=== PATIENT | female | born 1960 | race Caucasian/White ===

== ENCOUNTER 2017-01-14 12:53 | Inpatient (IN) | payer OTHER ==
[~2017-01-14] VITALS: Ht 160 cm; Wt 74.8 kg
[2017-01-14] MEDS ORDERED: GLIPIZIDE5 MG PO ×2 (13:27→13:32)
[2017-01-14] MEDS ORDERED: QUINAPRIL HCL40 MG PO (13:28)
[2017-01-14] MEDS ORDERED: QUINAPRIL HCL20 MG PO (13:28)
[2017-01-14] MEDS ORDERED: LIPITOR40 MG PO (13:30)
[2017-01-14] MEDS ORDERED: NIFEDICAL XL PO (13:30)
[2017-01-14] MEDS ORDERED: HYDROCHLOROTH12.5 M3 PO (13:30)
[2017-01-14] MEDS ORDERED: GLIPIZIDE10 MG PO (13:31)
[2017-01-14 13:43] LABS: ADD MIUA? YES; BILIRUBIN NEGATIVE; BLOOD MODERATE; GLUCOSE (STRIP) 150; KETONES NEGATIVE; LEUKOCYTES MODERATE; NITRITE NEGATIVE; PROTEIN (STRIP) 100; SPECIFIC GRAVITY 1.015 (1.000-1.030); UROBILINOGEN 0.2 MG/DL (0.2-1.0)
[2017-01-14 13:44] LABS: COLOR YELLOW ((YELLOW))
[2017-01-14 13:46] LABS: HEMATOCRIT 32.6 % (36.0-46.0); MCH 28.5 PG (29.0-34.0); MCHC 33.4 G/DL (30.0-36.0); MCV 85.1 FL (83-99); MEAN PLAT.VOLUME 10.9 uM^3 (9.5-12.4); PLATELET COUNT 229 K/uL (156-360); RBC DIS.WIDTH-CV 13.1 % (11.8-14.6); RBC DIS.WIDTH-SD 40.6 % (39-53); RED BLOOD COUNT 3.83 M/uL (3.80-5.20); WHITE BLOOD COUNT 13.8 K/uL (4.1-10.2)
[2017-01-14 13:56] LABS: UCUL ADDED? YES; WHITE BLOOD CELLS TNTC /HPF (0-5)
[2017-01-14 13:58] LABS: CHLORIDE 88 mEq/L (99-109); POTASSIUM 4.6 mEq/L (3.7-5.4); SODIUM 125 mEq/L (136-147)
[2017-01-14 13:59] LABS: GLUCOSE 376 mg/dL (70-99)
[2017-01-14 14:01] LABS: ANION GAP 21 MEQ/L (2-14)
[2017-01-14 14:03] LABS: GFR ESTIMATE (CALCULATED) 13 mL/min/
[2017-01-14 14:04] LABS: UREA NITROGEN (BUN) 61 mg/dL (9-23)
[2017-01-14] MEDS ORDERED: ACCUPRIL40 MG PO (15:43)
[2017-01-14] MEDS ORDERED: GLUCOTROL10 MG PO (15:44)
[2017-01-14] MEDS ORDERED: VITAMIN D31000 UNIT PO (15:45)
[2017-01-14] MEDS ORDERED: PROCARDIA XL30 MG PO (15:45)
[2017-01-14 20:42] VITALS: BP 126/65
[2017-01-14 21:18] LABS: POINT-OF-CARE METER ID UU13113781
[2017-01-14 23:53] VITALS: BP 116/57
[2017-01-15 07:08] LABS: HEMATOCRIT 32.6 % (36.0-46.0); MCH 27.8 PG (29.0-34.0); MCHC 31.9 G/DL (30.0-36.0); MCV 87.2 FL (83-99); MEAN PLAT.VOLUME 10.9 uM^3 (9.5-12.4); PLATELET COUNT 185 K/uL (156-360); RBC DIS.WIDTH-CV 13.4 % (11.8-14.6); RBC DIS.WIDTH-SD 42.6 % (39-53); RED BLOOD COUNT 3.74 M/uL (3.80-5.20)
[2017-01-15 07:17] LABS: ANION GAP 13 MEQ/L (2-14); CHLORIDE 96 MEQ/L (99-109); GFR ESTIMATE (CALCULATED) 14 mL/min/; GLUCOSE 266 mg/dL (70-99); POTASSIUM 4.9 MEQ/L (3.7-5.4); SAMPLE HEMOLYSIS CHECK 0; SAMPLE ICTERIC CHECK 0; SAMPLE LIPEMIA CHECK 0; SODIUM 131 MEQ/L (136-147); UREA NITROGEN (BUN) 54 mg/dL (9-23); WHITE BLOOD COUNT 8.8 K/uL (4.1-10.2)
[2017-01-15 07:18] LABS: VANCOMYCIN, TROUGH 16.1 MCG/ML (10-20)
[2017-01-15 08:01] LABS: POINT-OF-CARE METER ID UU13113698
[2017-01-15 08:57] VITALS: BP 125/60
[2017-01-15 11:21] LABS: POINT-OF-CARE METER ID UU13113698
[2017-01-15 11:40] VITALS: BP 102/56
[2017-01-15 15:16] VITALS: BP 111/57
[2017-01-15 16:33] LABS: POINT-OF-CARE METER ID UU13113698
[2017-01-15 20:25] VITALS: BP 120/61
[2017-01-15 21:35] LABS: POINT-OF-CARE METER ID UU13113698
[2017-01-15 23:51] VITALS: BP 121/63
[2017-01-16 03:50] VITALS: BP 124/64
[2017-01-16 07:20] LABS: HEMATOCRIT 32.3 % (36.0-46.0); MCH 26.9 PG (29.0-34.0); MCV 89.7 FL (83-99); MEAN PLAT.VOLUME 10.8 uM^3 (9.5-12.4); PLATELET COUNT 189 K/uL (156-360); RBC DIS.WIDTH-CV 13.6 % (11.8-14.6); RBC DIS.WIDTH-SD 45.1 % (39-53); WHITE BLOOD COUNT 6.1 K/uL (4.1-10.2)
[2017-01-16 07:23] LABS: ANION GAP 13 MEQ/L (2-14); CHLORIDE 98 MEQ/L (99-109); GFR ESTIMATE (CALCULATED) 16 mL/min/; GLUCOSE 181 mg/dL (70-99); MAGNESIUM 1.7 mg/dl (1.3-2.7); POTASSIUM 4.6 MEQ/L (3.7-5.4); SAMPLE HEMOLYSIS CHECK 0; SAMPLE ICTERIC CHECK 0; SAMPLE LIPEMIA CHECK 0; SODIUM 133 MEQ/L (136-147); UREA NITROGEN (BUN) 51 mg/dL (9-23)
[2017-01-16 07:39] LABS: POINT-OF-CARE USER ID NUTSLF44
[2017-01-16 07:44] VITALS: BP 122/60
[2017-01-16 09:21] LABS: ABS NEUTROPHIL COUNT 4.6; ATYPICAL LYMPHOCYTE 1.7 %; BAND NEUTROPHILS 28.4 % (0-8.0); BASOPHILS 0.9 %; EOSINOPHIL ABS CT 0.2; EOSINOPHILS 2.6 % (0-5.0); INSTRUMENT ABS NEUTROPHIL CT 4.3 K/uL; LYMPHOCYTES 6.9 % (15.0-45.0); MYELOCYTES 0.9 %; PLAT.SUFFICIENCY ADEQUATE; SEG.NEUTROPHILS 46.5 % (46.0-76.0)
[2017-01-16 12:20] LABS: POINT-OF-CARE USER ID NUTSLF44
[2017-01-16 15:31] VITALS: BP 102/50
[2017-01-16 16:52] LABS: POINT-OF-CARE USER ID NUTSLF44
[2017-01-16 19:22] VITALS: BP 118/63
[2017-01-16 21:08] LABS: POINT-OF-CARE METER ID UU13113698
[2017-01-17] VITALS (18 sets, daily range): BP systolic 71–140; BP diastolic 37–63
[2017-01-17 08:00] LABS: POINT-OF-CARE METER ID UU14174216
[2017-01-17 08:57] LABS: ANION GAP 15 MEQ/L (2-14); CHLORIDE 103 MEQ/L (99-109); POTASSIUM 4.4 MEQ/L (3.7-5.4); SAMPLE HEMOLYSIS CHECK 0; SAMPLE ICTERIC CHECK 0; SAMPLE LIPEMIA CHECK 0; SODIUM 136 MEQ/L (136-147); TOTAL BILIRUBIN 0.5 MG/DL (0.0-1.0)
[2017-01-17 09:03] LABS: ALKALINE PHOSPHATASE 136 IU/L (3-129); GFR ESTIMATE (CALCULATED) 15 mL/min/; GLUCOSE 168 mg/dL (70-99); UREA NITROGEN (BUN) 53 mg/dL (9-23)
[2017-01-17 09:20] LABS: HEMATOCRIT 31.4 % (36.0-46.0); MCH 27.6 PG (29.0-34.0); MCHC 30.3 G/DL (30.0-36.0); MCV 91.3 FL (83-99); MEAN PLAT.VOLUME 10.4 uM^3 (9.5-12.4); PLATELET COUNT 184 K/uL (156-360); RBC DIS.WIDTH-CV 14.3 % (11.8-14.6); RBC DIS.WIDTH-SD 48.1 % (39-53); RED BLOOD COUNT 3.44 M/uL (3.80-5.20)
[2017-01-17 09:23] LABS: WHITE BLOOD COUNT 8.7 K/uL (4.1-10.2)
[2017-01-17 11:18] LABS: POINT-OF-CARE METER ID UU13113698; POINT-OF-CARE USER ID NUTSLF44
[2017-01-17 12:10] LABS: BASE EXCESS -9.5 mEq/L (-3 to +3); BICARBONATE 19.4 mEq/L (22-26); CARBOXY HGB 1.9 % (0-5); COMMENTS - BLOOD GASES NEG A+C+; DEVICE HFNC; METHEMOGLOBIN 1.5 % (0-1.5); O2 FLOW 13 L/MIN; PCO2 57 mm Hg (35-45); PO2 70 mm Hg (80-100); SITE LR; TOTAL RESP RATE 20 resp/min
[2017-01-17 12:11] LABS: pH 7.14 (7.35-7.45)
[2017-01-17 12:39] LABS: HEMATOCRIT 31.4 % (36.0-46.0); MCH 27.5 PG (29.0-34.0); MCHC 30.3 G/DL (30.0-36.0); MEAN PLAT.VOLUME 10.2 uM^3 (9.5-12.4); PLATELET COUNT 187 K/uL (156-360); RBC DIS.WIDTH-CV 14.3 % (11.8-14.6); RBC DIS.WIDTH-SD 47.8 % (39-53); RED BLOOD COUNT 3.45 M/uL (3.80-5.20); WHITE BLOOD COUNT 10.3 K/uL (4.1-10.2)
[2017-01-17 12:49] LABS: INTER. NORMALIZED RATIO 1.1; PROTHROMBIN TIME 10.9 (9.2-11.2); PTT 34.1 (25-32)
[2017-01-17 12:51] LABS: POTASSIUM 4.4 mEq/L (3.7-5.4); SODIUM 132 mEq/L (136-147)
[2017-01-17 12:52] LABS: CHLORIDE 103 mEq/L (99-109)
[2017-01-17 12:53] LABS: GLUCOSE 287 mg/dL (70-99)
[2017-01-17 12:54] LABS: ANION GAP 14 MEQ/L (2-14)
[2017-01-17 12:57] LABS: GFR ESTIMATE (CALCULATED) 14 mL/min/; UREA NITROGEN (BUN) 58 mg/dL (9-23)
[2017-01-17 13:48] LABS: ABS NEUTROPHIL COUNT 9.1; ATYPICAL LYMPHOCYTE 0.9 %; BAND NEUTROPHILS 9.6 % (0-8.0); BASOPHILS 0.9 %; EOSINOPHIL ABS CT 0.1; EOSINOPHILS 0.9 % (0-5.0); LYMPHOCYTES 4.3 % (15.0-45.0); MYELOCYTES 1.7 %; PLAT.SUFFICIENCY ADEQUATE; SPHEROCYTES 1+
[2017-01-17 13:51] LABS: SEG.NEUTROPHILS 79.1 % (46.0-76.0)
[2017-01-17 14:27] LABS: BASE EXCESS -10.3 mEq/L (-3 to +3); CARBOXY HGB 1.8 % (0-5); METHEMOGLOBIN 1.9 % (0-1.5)
[2017-01-17 14:28] LABS: METH RESISTANT S AUREUS PCR NEGATIVE (NEGATIVE)
[2017-01-17 14:28] LABS: COMMENTS - BLOOD GASES A+C+; PCO2 69 mm Hg (35-45); PO2 110 mm Hg (80-100); SITE LR; pH 7.07 (7.35-7.45)
[2017-01-17 14:29] LABS: DEVICE 840; FI02 70 %; MECHANICAL RATE 16 resp/min; MODE AC; PEEP 10 CM/H20; TIDAL VOLUME 380 ML; TOTAL RESP RATE 16 resp/min
[2017-01-17 14:30] LABS: PROBE CHECK PASS; SPECIMEN PROCESSING CONTROL PASS
[2017-01-17 17:38] LABS: POINT-OF-CARE METER ID UU13113803
[2017-01-17 17:54] LABS: MAGNESIUM 1.7 mg/dl (1.3-2.7); TRIGLYCERIDES 574 MG/DL (Normal: <150)
[2017-01-17 18:30] LABS: BASE EXCESS -3.2 mEq/L (-3 to +3); BICARBONATE 24.7 mEq/L (22-26); CARBOXY HGB 1.6 % (0-5); METHEMOGLOBIN 1.4 % (0-1.5); PCO2 59 mm Hg (35-45); PO2 61 mm Hg (80-100); SITE RR; pH 7.23 (7.35-7.45)
[2017-01-17 18:31] LABS: COMMENTS - BLOOD GASES A+C+; DEVICE VENT; FI02 60 %; MECHANICAL RATE 20 resp/min; MODE AC; PEEP 10 CM/H20; TIDAL VOLUME 380 ML; TOTAL RESP RATE 20 resp/min
[2017-01-17 23:46] LABS: POINT-OF-CARE METER ID UU14162636
[2017-01-18] VITALS (12 sets, daily range): BP systolic 0–128; BP diastolic 0–58
[2017-01-18 06:13] LABS: POINT-OF-CARE METER ID UU14162636
[2017-01-18 06:20] LABS: MCH 27.6 PG (29.0-34.0); MCHC 31.5 G/DL (30.0-36.0); MCV 87.5 FL (83-99); MEAN PLAT.VOLUME 10.7 uM^3 (9.5-12.4); PLATELET COUNT 187 K/uL (156-360); RBC DIS.WIDTH-CV 14.2 % (11.8-14.6); RBC DIS.WIDTH-SD 45.3 % (39-53); RED BLOOD COUNT 2.97 M/uL (3.80-5.20)
[2017-01-18 06:54] LABS: ANION GAP 12 MEQ/L (2-14); CHLORIDE 97 MEQ/L (99-109); GFR ESTIMATE (CALCULATED) 13 mL/min/; GLUCOSE 284 mg/dL (70-99); MAGNESIUM 1.6 mg/dl (1.3-2.7); SAMPLE HEMOLYSIS CHECK 0; SAMPLE ICTERIC CHECK 0; SAMPLE LIPEMIA CHECK 0; SODIUM 135 MEQ/L (136-147); UREA NITROGEN (BUN) 51 mg/dL (9-23)
[2017-01-18 07:02] LABS: POTASSIUM 3.4 MEQ/L (3.7-5.4)
[2017-01-18 07:06] LABS: ABS NEUTROPHIL COUNT 10.8; BAND NEUTROPHILS 7.2 % (0-8.0); EOSINOPHIL ABS CT 0.2; EOSINOPHILS 1.8 % (0-5.0); HEMATOLOGY COMMENT 1 SN; INSTRUMENT ABS NEUTROPHIL CT 10.1 K/uL; LYMPHOCYTES 8.1 % (15.0-45.0); PLAT.SUFFICIENCY ADEQUATE; SEG.NEUTROPHILS 75.7 % (46.0-76.0)
[2017-01-18 12:27] LABS: POINT-OF-CARE METER ID UU14174217
[2017-01-18 17:28] LABS: POINT-OF-CARE METER ID UU13113731
[2017-01-18 23:00] LABS: POINT-OF-CARE METER ID UU13113731
[2017-01-19 02:11] LABS: POINT-OF-CARE METER ID UU14174217
[2017-01-19 05:04] LABS: POINT-OF-CARE METER ID UU14174217
[2017-01-19 05:06] LABS: HEMATOCRIT 26.9 % (36.0-46.0); MCH 27.5 PG (29.0-34.0); MCHC 31.2 G/DL (30.0-36.0); MCV 87.9 FL (83-99); MEAN PLAT.VOLUME 10.3 uM^3 (9.5-12.4); PLATELET COUNT 184 K/uL (156-360); RBC DIS.WIDTH-CV 14.2 % (11.8-14.6); RBC DIS.WIDTH-SD 45.6 % (39-53); RED BLOOD COUNT 3.06 M/uL (3.80-5.20); WHITE BLOOD COUNT 15.3 K/uL (4.1-10.2)
[2017-01-19 05:18] LABS: CHLORIDE 100 mEq/L (99-109); SODIUM 135 mEq/L (136-147)
[2017-01-19 05:19] LABS: MAGNESIUM 1.7 mg/dL (1.3-2.7)
[2017-01-19 05:20] LABS: GLUCOSE 233 mg/dL (70-99)
[2017-01-19 05:22] LABS: ANION GAP 12 MEQ/L (2-14); TOTAL BILIRUBIN 0.6 mg/dL (0.0-1.0)
[2017-01-19 05:24] LABS: ALKALINE PHOSPHATASE 184 IU/L (3-129); GFR ESTIMATE (CALCULATED) 11 mL/min/
[2017-01-19 05:25] LABS: UREA NITROGEN (BUN) 55 mg/dL (9-23)
[2017-01-19 05:26] LABS: DIRECT BILIRUBIN 0.5 mg/dL (0.0-0.3)
[2017-01-19 05:29] LABS: POTASSIUM 4.4 mEq/L (3.7-5.4)
[2017-01-19 06:00] VITALS: BP 101/49
[2017-01-19 06:12] LABS: TRIGLYCERIDES 526 MG/DL (Normal: <150)
[2017-01-19 06:23] LABS: PREALBUMIN < 3.0 mg/dL (10-40)
[2017-01-19 06:28] LABS: ADD MIUA? YES; BILIRUBIN NEGATIVE; BLOOD LARGE; COLOR STRAW ((YELLOW)); GLUCOSE (STRIP) 100; KETONES TRACE; LEUKOCYTES LARGE; NITRITE POSITIVE; PH, URINE 6.5 (5-8); PROTEIN (STRIP) 100; UROBILINOGEN 0.2 MG/DL (0.2-1.0)
[2017-01-19 06:29] LABS: WHITE BLOOD CELLS TNTC /HPF (0-5)
[2017-01-19 06:30] LABS: BACTERIA 3+ /HPF; CASTS NONE SEEN /LPF; CRYSTALS NONE SEEN; EPITHELIAL CELLS RARE /HPF; MUCUS NONE SEEN /LPF; UCUL ADDED? YES
[2017-01-19 07:00] VITALS: BP 111/42
[2017-01-19 09:00] VITALS: BP 108/64
[2017-01-19 09:57] LABS: POINT-OF-CARE METER ID UU14174217
[2017-01-19 10:34] LABS: ABS NEUTROPHIL COUNT 13.5; BAND NEUTROPHILS 1.7 % (0-8.0); EOSINOPHIL ABS CT 0; INSTRUMENT ABS NEUTROPHIL CT 12.3 K/uL; LYMPHOCYTES 5.3 % (15.0-45.0); METAMYELOCYTES 1.8 %; PLAT.SUFFICIENCY ADEQUATE; SEG.NEUTROPHILS 86.8 % (46.0-76.0)
[2017-01-19 21:00] VITALS: BP 116/64
[2017-01-20 02:54] LABS: POINT-OF-CARE METER ID UU14162636
[2017-01-20 05:31] LABS: POINT-OF-CARE METER ID UU14162636
[2017-01-20 06:39] LABS: ANION GAP 12 MEQ/L (2-14); CHLORIDE 101 MEQ/L (99-109); GFR ESTIMATE (CALCULATED) 9 mL/min/; GLUCOSE 240 mg/dL (70-99); POTASSIUM 4.4 MEQ/L (3.7-5.4); SAMPLE HEMOLYSIS CHECK 0; SAMPLE ICTERIC CHECK 0; SAMPLE LIPEMIA CHECK 0; SODIUM 137 MEQ/L (136-147); UREA NITROGEN (BUN) 58 mg/dL (9-23)
[2017-01-20 06:46] LABS: MAGNESIUM 2.2 mg/dl (1.3-2.7); VANCOMYCIN, TROUGH 23.1 MCG/ML (10-20)
[2017-01-20 07:00] VITALS: BP 114/65
[2017-01-20 08:00] VITALS: BP 114/55
[2017-01-20 14:11] LABS: BASE EXCESS -2.8 mEq/L (-3 to +3); BICARBONATE 24.3 mEq/L (22-26); CARBOXY HGB 1.8 % (0-5); COMMENTS - BLOOD GASES C+; DEVICE 840; FI02 60 %; MECHANICAL RATE 24 resp/min; METHEMOGLOBIN 1.5 % (0-1.5); MODE A/C; PCO2 53 mm Hg (35-45); PO2 67 mm Hg (80-100); SITE ALINE; TIDAL VOLUME 380 ML; TOTAL RESP RATE 24 resp/min
[2017-01-20 14:12] LABS: PEEP 10 CM/H20; pH 7.27 (7.35-7.45)
[2017-01-20 19:00] VITALS: BP 114/55
[2017-01-20 22:16] LABS: POINT-OF-CARE METER ID UU14162636
[2017-01-21 01:00] VITALS: BP 114/55
[2017-01-21 01:53] LABS: POINT-OF-CARE METER ID UU14162636
[2017-01-21 05:43] LABS: HEMATOCRIT 23.8 % (36.0-46.0); MCH 27.2 PG (29.0-34.0); MCHC 29.8 G/DL (30.0-36.0); MCV 91.2 FL (83-99); MEAN PLAT.VOLUME 10.5 uM^3 (9.5-12.4); PLATELET COUNT 148 K/uL (156-360); RBC DIS.WIDTH-CV 14.5 % (11.8-14.6); RBC DIS.WIDTH-SD 47.9 % (39-53); RED BLOOD COUNT 2.61 M/uL (3.80-5.20); WHITE BLOOD COUNT 14.3 K/uL (4.1-10.2)
[2017-01-21 06:15] LABS: ANION GAP 14 MEQ/L (2-14); CHLORIDE 105 MEQ/L (99-109); GFR ESTIMATE (CALCULATED) 8 mL/min/; GLUCOSE 221 mg/dL (70-99); MAGNESIUM 2.5 mg/dl (1.3-2.7); POTASSIUM 5.2 MEQ/L (3.7-5.4); SAMPLE HEMOLYSIS CHECK 0; SAMPLE ICTERIC CHECK 0; SAMPLE LIPEMIA CHECK 0; SODIUM 140 MEQ/L (136-147); UREA NITROGEN (BUN) 67 mg/dL (9-23)
[2017-01-21 06:17] LABS: POINT-OF-CARE METER ID UU14162636
[2017-01-21 07:32] LABS: ABS NEUTROPHIL COUNT 11.6; ANISOCYTOSIS 1+; BAND NEUTROPHILS 0.9 % (0-8.0); BASOPHILS 0.9 %; EOSINOPHIL ABS CT 0.4; EOSINOPHILS 2.6 % (0-5.0); INSTRUMENT ABS NEUTROPHIL CT 10.8 K/uL; LYMPHOCYTES 7.7 % (15.0-45.0); METAMYELOCYTES 1.7 %; MICROCYTOSIS 1+; MYELOCYTES 3.4 %; PLAT.SUFFICIENCY DECREASED; POLYCHROMASIA 1+; SEG.NEUTROPHILS 80.2 % (46.0-76.0)
[2017-01-21 08:00] VITALS: BP 128/48
[2017-01-21 09:00] VITALS: BP 128/48
[2017-01-21 10:57] LABS: HEMATOCRIT 24.5 % (36.0-46.0); MCV 91.8 FL (83-99)
[2017-01-21 11:20] LABS: POINT-OF-CARE METER ID UU14162636
[2017-01-21 15:00] LABS: POINT-OF-CARE METER ID UU14174217
[2017-01-21 17:43] LABS: POINT-OF-CARE METER ID UU14174217
[2017-01-21 20:26] LABS: ANION GAP 14 MEQ/L (2-14); CHLORIDE 104 MEQ/L (99-109); GFR ESTIMATE (CALCULATED) 8 mL/min/; GLUCOSE 230 mg/dL (70-99); POTASSIUM 5.4 MEQ/L (3.7-5.4); SAMPLE HEMOLYSIS CHECK 0; SAMPLE ICTERIC CHECK 0; SAMPLE LIPEMIA CHECK 0; SODIUM 137 MEQ/L (136-147); UREA NITROGEN (BUN) 75 mg/dL (9-23)
[2017-01-21 21:49] LABS: POINT-OF-CARE METER ID UU14174217
[2017-01-22] VITALS (13 sets, daily range): BP systolic 110–165; BP diastolic 47–63
[2017-01-22 02:34] LABS: POINT-OF-CARE METER ID UU13113803
[2017-01-22 05:47] LABS: POINT-OF-CARE METER ID UU13113803
[2017-01-22 05:48] LABS: BASE EXCESS -5.6 mEq/L (-3 to +3); BICARBONATE 20.7 mEq/L (22-26); CARBOXY HGB 2.1 % (0-5); METHEMOGLOBIN 1.5 % (0-1.5); PO2 66 mm Hg (80-100)
[2017-01-22 05:49] LABS: COMMENTS - BLOOD GASES C+; DEVICE VENT; FI02 40 %; INSPIRATION TIME 0.9 seconds; MECHANICAL RATE 14 resp/min; MODE A/C PC; PCO2 44 mm Hg (35-45); PEEP 5 CM/H20; PRESSURE CONTROL VENTILATION 15 CM H20; SITE RR ALINE; TOTAL RESP RATE 20 resp/min; pH 7.28 (7.35-7.45)
[2017-01-22 05:49] LABS: HEMATOCRIT 23.5 % (36.0-46.0); MCH 27.6 PG (29.0-34.0); MCHC 29.8 G/DL (30.0-36.0); MCV 92.5 FL (83-99); MEAN PLAT.VOLUME 10.7 uM^3 (9.5-12.4); RBC DIS.WIDTH-CV 14.4 % (11.8-14.6); RBC DIS.WIDTH-SD 49.3 % (39-53); RED BLOOD COUNT 2.54 M/uL (3.80-5.20); WHITE BLOOD COUNT 12.8 K/uL (4.1-10.2)
[2017-01-22 06:36] LABS: ALKALINE PHOSPHATASE 160 IU/L (3-129); ANION GAP 15 MEQ/L (2-14); CHLORIDE 105 MEQ/L (99-109); DIRECT BILIRUBIN 0.1 mg/dL (0.0-0.3); GFR ESTIMATE (CALCULATED) 7 mL/min/; GLUCOSE 217 mg/dL (70-99); MAGNESIUM 2.4 mg/dl (1.3-2.7); POTASSIUM 5.4 MEQ/L (3.7-5.4); PREALBUMIN 5.2 mg/dL (10-40); SAMPLE HEMOLYSIS CHECK 0; SAMPLE ICTERIC CHECK 0; SAMPLE LIPEMIA CHECK 0; SODIUM 140 MEQ/L (136-147); TRIGLYCERIDES 369 MG/DL (Normal: <150); UREA NITROGEN (BUN) 81 mg/dL (9-23)
[2017-01-22 06:38] LABS: TOTAL BILIRUBIN 0.3 MG/DL (0.0-1.0)
[2017-01-22 07:25] LABS: ABS NEUTROPHIL COUNT 10.4; ANISOCYTOSIS 1+; BAND NEUTROPHILS 0.9 % (0-8.0); EOSINOPHIL ABS CT 0.7; EOSINOPHILS 5.2 % (0-5.0); INSTRUMENT ABS NEUTROPHIL CT 9.6 K/uL; LYMPHOCYTES 6.1 % (15.0-45.0); MICROCYTOSIS 1+; PLAT.SUFFICIENCY ADEQUATE; POLYCHROMASIA 1+
[2017-01-22 10:42] LABS: POINT-OF-CARE METER ID UU13113803
[2017-01-22 14:46] LABS: POINT-OF-CARE METER ID UU13113803
[2017-01-22 18:26] LABS: POINT-OF-CARE METER ID UU14162636
[2017-01-22 22:13] LABS: POINT-OF-CARE METER ID UU14162636
[2017-01-23] VITALS: BP 117/53
[2017-01-23 00:34] LABS: HEMATOCRIT 31.3 % (36.0-46.0); MCH 27.5 PG (29.0-34.0); MCHC 30.7 G/DL (30.0-36.0); MCV 89.7 FL (83-99); MEAN PLAT.VOLUME 10.1 uM^3 (9.5-12.4); PLATELET COUNT 172 K/uL (156-360); RBC DIS.WIDTH-CV 15.3 % (11.8-14.6); RBC DIS.WIDTH-SD 50.4 % (39-53); WHITE BLOOD COUNT 14.3 K/uL (4.1-10.2)
[2017-01-23 00:36] LABS: PROTHROMBIN TIME 10.4 (9.2-11.2); PTT 35.6 (25-32)
[2017-01-23 00:37] LABS: CHLORIDE 109 mEq/L (99-109); SODIUM 143 mEq/L (136-147)
[2017-01-23 00:40] LABS: GLUCOSE 170 mg/dL (70-99)
[2017-01-23 00:41] LABS: ANION GAP 14 MEQ/L (2-14)
[2017-01-23 00:43] LABS: GFR ESTIMATE (CALCULATED) 9 mL/min/
[2017-01-23 00:44] LABS: UREA NITROGEN (BUN) 78 mg/dL (9-23)
[2017-01-23 01:03] LABS: RED BLOOD COUNT 3.49 M/uL (3.80-5.20)
[2017-01-23 01:25] LABS: ABS NEUTROPHIL COUNT 11.7; BAND NEUTROPHILS 0.9 % (0-8.0); BASOPHILS 1.7 %; EOSINOPHIL ABS CT 0.1; EOSINOPHILS 0.9 % (0-5.0); HEMATOLOGY COMMENT 1 SN; HYPOCHROMASIA 1+; INSTRUMENT ABS NEUTROPHIL CT 11.2 K/uL; LYMPHOCYTES 4.3 % (15.0-45.0); METAMYELOCYTES 0.9 %; MYELOCYTES 0.9 %; PLAT.SUFFICIENCY ADEQUATE; PLATELET CLUMPS PRESENT - PLATELET COUNT APPEARS ADQ.; POLYCHROMASIA 1+; SEG.NEUTROPHILS 80.9 % (46.0-76.0)
[2017-01-23 04:00] VITALS: BP 109/53
[2017-01-23 06:01] LABS: EOSINOPHIL (%) 2.8 % (0-5); EOSINOPHIL COUNT 0.3 K/uL (0-0.3); HEMATOCRIT 30.1 % (36.0-46.0); IMMATURE GRANULOCYTE (%) 4.7 % (0.0-0.7); IMMATURE GRANULOCYTE COUNT 0.6 K/uL; INSTRUMENT ABS NEUTROPHIL CT 9.4 K/uL; MCH 27.7 PG (29.0-34.0); MCHC 30.9 G/DL (30.0-36.0); MCV 89.6 FL (83-99); MEAN PLAT.VOLUME 10.9 uM^3 (9.5-12.4); MONOCYTE (%) 7.6 % (3-12); MONOCYTE COUNT 0.9 K/uL (0-0.8); NEUTROPHIL (%) 76.9 % (45-76); NEUTROPHIL COUNT 9.4 K/uL (1.8-6.4); PLATELET COUNT 168 K/uL (156-360); RBC DIS.WIDTH-CV 15.4 % (11.8-14.6); RBC DIS.WIDTH-SD 50.3 % (39-53); RED BLOOD COUNT 3.36 M/uL (3.80-5.20); WHITE BLOOD COUNT 12.2 K/uL (4.1-10.2)
[2017-01-23 07:12] LABS: ANION GAP 14 MEQ/L (2-14); CHLORIDE 106 MEQ/L (99-109); GLUCOSE 144 mg/dL (70-99); MAGNESIUM 2.2 mg/dl (1.3-2.7); POTASSIUM 4.5 MEQ/L (3.7-5.4); SAMPLE HEMOLYSIS CHECK 0; SAMPLE ICTERIC CHECK 0; SAMPLE LIPEMIA CHECK 0; SODIUM 141 MEQ/L (136-147); UREA NITROGEN (BUN) 63 mg/dL (9-23)
[2017-01-23 07:17] LABS: GFR ESTIMATE (CALCULATED) 13 mL/min/
[2017-01-23 08:00] VITALS: BP 119/50
[2017-01-23 09:00] VITALS: BP 119/50
[2017-01-23 11:27] LABS: POINT-OF-CARE METER ID UU14162636
[2017-01-23 12:00] VITALS: BP 130/61
[2017-01-23 13:22] LABS: EOSINOPHIL (%) 3.2 % (0-5); EOSINOPHIL COUNT 0.4 K/uL (0-0.3); HEMATOCRIT 30.4 % (36.0-46.0); IMMATURE GRANULOCYTE (%) 4.4 % (0.0-0.7); IMMATURE GRANULOCYTE COUNT 0.5 K/uL; INSTRUMENT ABS NEUTROPHIL CT 9.3 K/uL; MCH 27.6 PG (29.0-34.0); MCHC 30.9 G/DL (30.0-36.0); MCV 89.1 FL (83-99); MEAN PLAT.VOLUME 10.9 uM^3 (9.5-12.4); MONOCYTE (%) 8.4 % (3-12); NEUTROPHIL (%) 75.7 % (45-76); NEUTROPHIL COUNT 9.3 K/uL (1.8-6.4); PLATELET COUNT 157 K/uL (156-360); RBC DIS.WIDTH-CV 15.3 % (11.8-14.6); RBC DIS.WIDTH-SD 49.2 % (39-53); RED BLOOD COUNT 3.41 M/uL (3.80-5.20); WHITE BLOOD COUNT 12.3 K/uL (4.1-10.2)
[2017-01-23 13:51] LABS: ANION GAP 11 MEQ/L (2-14); CHLORIDE 107 MEQ/L (99-109); GFR ESTIMATE (CALCULATED) 20 mL/min/; GLUCOSE 129 mg/dL (70-99); MAGNESIUM 2.1 mg/dl (1.3-2.7); POTASSIUM 4.2 MEQ/L (3.7-5.4); SAMPLE HEMOLYSIS CHECK 0; SAMPLE ICTERIC CHECK 0; SAMPLE LIPEMIA CHECK 0; SODIUM 141 MEQ/L (136-147); UREA NITROGEN (BUN) 49 mg/dL (9-23)
[2017-01-23 14:53] LABS: POINT-OF-CARE METER ID UU14162636
[2017-01-23 17:48] LABS: POINT-OF-CARE METER ID UU14162636
[2017-01-23 18:14] LABS: ANION GAP 9 MEQ/L (2-14); CHLORIDE 107 MEQ/L (99-109); GFR ESTIMATE (CALCULATED) 23 mL/min/; GLUCOSE 136 mg/dL (70-99); MAGNESIUM 2.1 mg/dl (1.3-2.7); POTASSIUM 4.1 MEQ/L (3.7-5.4); SAMPLE HEMOLYSIS CHECK 0; SAMPLE ICTERIC CHECK 0; SAMPLE LIPEMIA CHECK 0; SODIUM 139 MEQ/L (136-147); UREA NITROGEN (BUN) 43 mg/dL (9-23)
[2017-01-23 22:00] VITALS: BP 129/54
[2017-01-24] VITALS (17 sets, daily range): BP systolic 106–181; BP diastolic 45–78
[2017-01-24 01:08] LABS: EOSINOPHIL (%) 3.6 % (0-5); EOSINOPHIL COUNT 0.4 K/uL (0-0.3); HEMATOCRIT 29.3 % (36.0-46.0); IMMATURE GRANULOCYTE (%) 4.2 % (0.0-0.7); IMMATURE GRANULOCYTE COUNT 0.5 K/uL; INSTRUMENT ABS NEUTROPHIL CT 8.6 K/uL; LYMPHOCYTE COUNT 1.1 K/uL (1.0-2.8); MCH 28.2 PG (29.0-34.0); MCHC 31.7 G/DL (30.0-36.0); MCV 88.8 FL (83-99); MONOCYTE (%) 8.1 % (3-12); MONOCYTE COUNT 0.9 K/uL (0-0.8); NEUTROPHIL (%) 74.5 % (45-76); NEUTROPHIL COUNT 8.6 K/uL (1.8-6.4); PLATELET COUNT 176 K/uL (156-360); RBC DIS.WIDTH-CV 15.1 % (11.8-14.6); RBC DIS.WIDTH-SD 48.9 % (39-53); WHITE BLOOD COUNT 11.5 K/uL (4.1-10.2)
[2017-01-24 01:22] LABS: CHLORIDE 109 mEq/L (99-109); POTASSIUM 4.3 mEq/L (3.7-5.4); SODIUM 140 mEq/L (136-147)
[2017-01-24 01:23] LABS: MAGNESIUM 1.8 mg/dL (1.3-2.7)
[2017-01-24 01:24] LABS: GLUCOSE 149 mg/dL (70-99)
[2017-01-24 01:25] LABS: ANION GAP 10 MEQ/L (2-14)
[2017-01-24 01:29] LABS: UREA NITROGEN (BUN) 34 mg/dL (9-23)
[2017-01-24 01:32] LABS: GFR ESTIMATE (CALCULATED) 33 mL/min/
[2017-01-24 05:33] LABS: POINT-OF-CARE METER ID UU14174217
[2017-01-24 05:38] LABS: HEMATOCRIT 27.5 % (36.0-46.0); MCH 28.2 PG (29.0-34.0); MCHC 31.6 G/DL (30.0-36.0); MEAN PLAT.VOLUME 11.3 uM^3 (9.5-12.4); PLATELET COUNT 219 K/uL (156-360); RBC DIS.WIDTH-CV 15.3 % (11.8-14.6); RBC DIS.WIDTH-SD 49.1 % (39-53); RED BLOOD COUNT 3.09 M/uL (3.80-5.20); WHITE BLOOD COUNT 12.2 K/uL (4.1-10.2)
[2017-01-24 06:07] LABS: MAGNESIUM 2.2 mg/dl (1.3-2.7)
[2017-01-24 09:31] LABS: POINT-OF-CARE METER ID UU14174217
[2017-01-24 11:09] LABS: ANION GAP 9 MEQ/L (2-14); CHLORIDE 105 MEQ/L (99-109); GFR ESTIMATE (CALCULATED) 24 mL/min/; GLUCOSE 244 mg/dL (70-99); POTASSIUM 4.7 MEQ/L (3.7-5.4); SAMPLE HEMOLYSIS CHECK 1; SAMPLE ICTERIC CHECK 0; SAMPLE LIPEMIA CHECK 0; SODIUM 137 MEQ/L (136-147); UREA NITROGEN (BUN) 43 mg/dL (9-23)
[2017-01-24 11:18] LABS: BASE EXCESS -4.6 mEq/L (-3 to +3); BICARBONATE 21.6 mEq/L (22-26); CARBOXY HGB 1.9 % (0-5); METHEMOGLOBIN 1.8 % (0-1.5); PCO2 44 mm Hg (35-45)
[2017-01-24 11:19] LABS: COMMENTS - BLOOD GASES NAC+; DEVICE PB840 VENT; FI02 35 %; MODE SPONT TC; PEEP 5 CM/H20; PO2 82 mm Hg (80-100); SITE ALINE; TOTAL RESP RATE 26 resp/min
[2017-01-24 14:06] LABS: POINT-OF-CARE METER ID UU14162636
[2017-01-24 17:13] LABS: POINT-OF-CARE METER ID UU14174217
[2017-01-25] VITALS (11 sets, daily range): BP systolic 0–177; BP diastolic 0–86
[2017-01-25 01:30] LABS: POINT-OF-CARE METER ID UU14162636
[2017-01-25 05:18] LABS: ADD MIUA? YES; BILIRUBIN NEGATIVE; BLOOD MODERATE; COLOR YELLOW ((YELLOW)); GLUCOSE (STRIP) >=500; KETONES NEGATIVE; LEUKOCYTES LARGE; NITRITE NEGATIVE; PROTEIN (STRIP) 30; SPECIFIC GRAVITY 1.005 (1.000-1.030); UROBILINOGEN 0.2 MG/DL (0.2-1.0)
[2017-01-25 05:28] LABS: BACTERIA RARE /HPF; EPITHELIAL CELLS NONE SEEN /HPF; MUCUS TRACE /LPF; WHITE BLOOD CELLS TNTC /HPF (0-5); WHITE BLOOD CELLS CLUMP FEW /HPF (0-5)
[2017-01-25 06:00] LABS: POINT-OF-CARE METER ID UU14174217
[2017-01-25 06:26] LABS: EOSINOPHIL (%) 2.2 % (0-5); EOSINOPHIL COUNT 0.3 K/uL (0-0.3); HEMATOCRIT 31.8 % (36.0-46.0); IMMATURE GRANULOCYTE (%) 2.8 % (0.0-0.7); IMMATURE GRANULOCYTE COUNT 0.4 K/uL; INSTRUMENT ABS NEUTROPHIL CT 10.8 K/uL; LYMPHOCYTE COUNT 0.9 K/uL (1.0-2.8); MCH 27.4 PG (29.0-34.0); MCHC 30.8 G/DL (30.0-36.0); MCV 88.8 FL (83-99); MEAN PLAT.VOLUME 10.8 uM^3 (9.5-12.4); MONOCYTE (%) 7.4 % (3-12); NEUTROPHIL (%) 80.7 % (45-76); NEUTROPHIL COUNT 10.8 K/uL (1.8-6.4); RBC DIS.WIDTH-CV 14.7 % (11.8-14.6); RBC DIS.WIDTH-SD 47.9 % (39-53); RED BLOOD COUNT 3.58 M/uL (3.80-5.20); WHITE BLOOD COUNT 13.4 K/uL (4.1-10.2)
[2017-01-25 06:36] LABS: ALKALINE PHOSPHATASE 200 IU/L (3-129); ANION GAP 15 MEQ/L (2-14); CHLORIDE 107 MEQ/L (99-109); GLUCOSE 313 mg/dL (70-99); MAGNESIUM 2.5 mg/dl (1.3-2.7); SAMPLE HEMOLYSIS CHECK 0; SAMPLE ICTERIC CHECK 0; SAMPLE LIPEMIA CHECK 0
[2017-01-25 06:39] LABS: GFR ESTIMATE (CALCULATED) 15 mL/min/; SODIUM 145 MEQ/L (136-147); TOTAL BILIRUBIN 0.4 MG/DL (0.0-1.0); UREA NITROGEN (BUN) 76 mg/dL (9-23)
[2017-01-25 06:46] LABS: PLATELET COUNT 292 K/uL (156-360)
[2017-01-25 11:11] LABS: POINT-OF-CARE METER ID UU14174217
[2017-01-25 17:09] LABS: POINT-OF-CARE METER ID UU14162636
[2017-01-25 19:43] LABS: POINT-OF-CARE METER ID UU14162636
[2017-01-25 23:01] LABS: POINT-OF-CARE METER ID UU14174217
[2017-01-26] VITALS (9 sets, daily range): BP systolic 145–175; BP diastolic 60–83
[2017-01-26 03:47] LABS: POINT-OF-CARE METER ID UU13113803
[2017-01-26 05:47] LABS: POINT-OF-CARE METER ID UU13113803
[2017-01-26 06:20] LABS: ANION GAP 15 MEQ/L (2-14); CHLORIDE 106 MEQ/L (99-109); GFR ESTIMATE (CALCULATED) 13 mL/min/; GLUCOSE 169 mg/dL (70-99); MAGNESIUM 2.2 mg/dl (1.3-2.7); POTASSIUM 3.5 MEQ/L (3.7-5.4); SAMPLE HEMOLYSIS CHECK 0; SAMPLE ICTERIC CHECK 0; SAMPLE LIPEMIA CHECK 0; SODIUM 145 MEQ/L (136-147); UREA NITROGEN (BUN) 81 mg/dL (9-23)
[2017-01-26 10:02] LABS: POINT-OF-CARE METER ID UU13113803
[2017-01-26 12:31] LABS: POINT-OF-CARE METER ID UU13113803
[2017-01-27 03:44] VITALS: BP 168/72
[2017-01-27 05:22] VITALS: BP 167/78
[2017-01-27 06:45] LABS: HEMATOCRIT 30.2 % (36.0-46.0); MCH 27.2 PG (29.0-34.0); MCHC 31.1 G/DL (30.0-36.0); MCV 87.5 FL (83-99); MEAN PLAT.VOLUME 10.5 uM^3 (9.5-12.4); PLATELET COUNT 374 K/uL (156-360); RBC DIS.WIDTH-CV 14.8 % (11.8-14.6); RBC DIS.WIDTH-SD 46.8 % (39-53); RED BLOOD COUNT 3.45 M/uL (3.80-5.20)
[2017-01-27 07:13] LABS: ANION GAP 14 MEQ/L (2-14); CHLORIDE 103 MEQ/L (99-109); GFR ESTIMATE (CALCULATED) 15 mL/min/; POTASSIUM 3.8 MEQ/L (3.7-5.4); SAMPLE HEMOLYSIS CHECK 0; SAMPLE ICTERIC CHECK 0; SAMPLE LIPEMIA CHECK 0; SODIUM 140 MEQ/L (136-147); UREA NITROGEN (BUN) 81 mg/dL (9-23)
[2017-01-27 07:19] LABS: GLUCOSE 327 mg/dL (70-99); MAGNESIUM 1.8 mg/dl (1.3-2.7)
[2017-01-27 07:46] LABS: POINT-OF-CARE METER ID UU13113781
[2017-01-27 08:30] VITALS: BP 179/84
[2017-01-27 11:33] VITALS: BP 129/61
[2017-01-27 15:42] VITALS: BP 100/58
[2017-01-27 20:30] VITALS: BP 118/58
[2017-01-28] VITALS (7 sets, daily range): BP systolic 102–138; BP diastolic 55–74
[2017-01-28 00:17] LABS: POINT-OF-CARE USER ID 608261316
[2017-01-28 06:37] LABS: HEMATOCRIT 29.5 % (36.0-46.0); MCH 27.5 PG (29.0-34.0); MCHC 32.2 G/DL (30.0-36.0); MCV 85.5 FL (83-99); MEAN PLAT.VOLUME 10.2 uM^3 (9.5-12.4); PLATELET COUNT 376 K/uL (156-360); RBC DIS.WIDTH-CV 14.5 % (11.8-14.6); RBC DIS.WIDTH-SD 44.8 % (39-53); RED BLOOD COUNT 3.45 M/uL (3.80-5.20); WHITE BLOOD COUNT 10.4 K/uL (4.1-10.2)
[2017-01-28 06:59] LABS: ANION GAP 16 MEQ/L (2-14); CHLORIDE 100 MEQ/L (99-109); GFR ESTIMATE (CALCULATED) 15 mL/min/; GLUCOSE 287 mg/dL (70-99); MAGNESIUM 1.6 mg/dl (1.3-2.7); POTASSIUM 3.6 MEQ/L (3.7-5.4); SAMPLE HEMOLYSIS CHECK 0; SAMPLE ICTERIC CHECK 0; SAMPLE LIPEMIA CHECK 0; SODIUM 140 MEQ/L (136-147); UREA NITROGEN (BUN) 78 mg/dL (9-23)
[2017-01-28 07:56] LABS: POINT-OF-CARE METER ID UU13113781
[2017-01-28 10:53] LABS: POINT-OF-CARE METER ID UU14174216
[2017-01-28 21:15] LABS: POINT-OF-CARE METER ID UU14174216
[2017-01-29 04:00] VITALS: BP 122/77
[2017-01-29 06:30] LABS: BASOPHIL COUNT 0.1 K/uL (0-0.1); EOSINOPHIL (%) 4.7 % (0-5); EOSINOPHIL COUNT 0.4 K/uL (0-0.3); HEMATOCRIT 31.6 % (36.0-46.0); IMMATURE GRANULOCYTE (%) 0.9 % (0.0-0.7); IMMATURE GRANULOCYTE COUNT 0.1 K/uL; INSTRUMENT ABS NEUTROPHIL CT 6.4 K/uL; LYMPHOCYTE COUNT 1.4 K/uL (1.0-2.8); MCH 27.5 PG (29.0-34.0); MCV 86.1 FL (83-99); MEAN PLAT.VOLUME 10.1 uM^3 (9.5-12.4); MONOCYTE (%) 9.2 % (3-12); MONOCYTE COUNT 0.9 K/uL (0-0.8); NEUTROPHIL (%) 69.1 % (45-76); NEUTROPHIL COUNT 6.4 K/uL (1.8-6.4); PLATELET COUNT 386 K/uL (156-360); RBC DIS.WIDTH-CV 14.4 % (11.8-14.6); RBC DIS.WIDTH-SD 44.5 % (39-53); RED BLOOD COUNT 3.67 M/uL (3.80-5.20); WHITE BLOOD COUNT 9.3 K/uL (4.1-10.2)
[2017-01-29 06:50] LABS: ALKALINE PHOSPHATASE 160 IU/L (3-129); ANION GAP 13 MEQ/L (2-14); CHLORIDE 104 MEQ/L (99-109); GFR ESTIMATE (CALCULATED) 17 mL/min/; GLUCOSE 248 mg/dL (70-99); POTASSIUM 4.1 MEQ/L (3.7-5.4); SAMPLE HEMOLYSIS CHECK 0; SAMPLE ICTERIC CHECK 0; SAMPLE LIPEMIA CHECK 0; SODIUM 140 MEQ/L (136-147); TOTAL BILIRUBIN 0.4 MG/DL (0.0-1.0); UREA NITROGEN (BUN) 69 mg/dL (9-23)
[2017-01-29 06:52] LABS: ANION GAP 12 MEQ/L (2-14); CHLORIDE 103 MEQ/L (99-109); DIRECT BILIRUBIN 0.1 mg/dL (0.0-0.3); GFR ESTIMATE (CALCULATED) 17 mL/min/; GLUCOSE 242 mg/dL (70-99); MAGNESIUM 1.8 mg/dl (1.3-2.7); SAMPLE HEMOLYSIS CHECK 0; SAMPLE ICTERIC CHECK 0; SAMPLE LIPEMIA CHECK 0; SODIUM 139 MEQ/L (136-147); TRIGLYCERIDES 497 MG/DL (Normal: <150); UREA NITROGEN (BUN) 66 mg/dL (9-23)
[2017-01-29 07:00] LABS: ALKALINE PHOSPHATASE 146 IU/L (3-129); TOTAL BILIRUBIN 0.3 MG/DL (0.0-1.0)
[2017-01-29 07:55] VITALS: BP 156/74
[2017-01-29 11:30] LABS: POINT-OF-CARE METER ID UU13113781
[2017-01-29 11:48] VITALS: BP 113/55
[2017-01-29 15:36] VITALS: BP 145/66
[2017-01-29 19:44] VITALS: BP 140/68
[2017-01-29 23:24] VITALS: BP 138/69
[2017-01-30 04:29] VITALS: BP 139/65
[2017-01-30 07:25] LABS: ANION GAP 13 MEQ/L (2-14); CHLORIDE 109 MEQ/L (99-109); GFR ESTIMATE (CALCULATED) 19 mL/min/; SAMPLE HEMOLYSIS CHECK 0; SAMPLE ICTERIC CHECK 0; SAMPLE LIPEMIA CHECK 0; SODIUM 143 MEQ/L (136-147); UREA NITROGEN (BUN) 59 mg/dL (9-23)
[2017-01-30 07:27] LABS: GLUCOSE 96 mg/dL (70-99); MAGNESIUM 2.1 mg/dl (1.3-2.7)
[2017-01-30 07:39] VITALS: BP 152/72
[2017-01-30 11:08] VITALS: BP 121/57
[2017-01-30 11:37] LABS: URINE UREA NITROGEN 4298 MG/24 HR
[2017-01-30 11:42] LABS: POINT-OF-CARE METER ID UU14174216
[2017-01-30 14:52] LABS: POINT-OF-CARE METER ID UU14174216; POINT-OF-CARE USER ID 608261316
[2017-01-30 16:06] VITALS: BP 152/68
[2017-01-30 16:17] LABS: POINT-OF-CARE METER ID UU14174216
[2017-01-30 19:30] VITALS: BP 150/68
[2017-01-30 23:45] VITALS: BP 165/76
[2017-01-31 04:19] VITALS: BP 142/71
[2017-01-31 07:08] LABS: HEMATOCRIT 31.1 % (36.0-46.0); MCH 27.8 PG (29.0-34.0); MCHC 31.5 G/DL (30.0-36.0); MCV 88.1 FL (83-99); MEAN PLAT.VOLUME 10.1 uM^3 (9.5-12.4); PLATELET COUNT 291 K/uL (156-360); RBC DIS.WIDTH-CV 15.1 % (11.8-14.6); RBC DIS.WIDTH-SD 48.4 % (39-53); RED BLOOD COUNT 3.53 M/uL (3.80-5.20); WHITE BLOOD COUNT 8.4 K/uL (4.1-10.2)
[2017-01-31 07:19] LABS: ANION GAP 10 MEQ/L (2-14); CHLORIDE 108 MEQ/L (99-109); GFR ESTIMATE (CALCULATED) 21 mL/min/; GLUCOSE 122 mg/dL (70-99); POTASSIUM 3.9 MEQ/L (3.7-5.4); SAMPLE HEMOLYSIS CHECK 0; SAMPLE ICTERIC CHECK 0; SAMPLE LIPEMIA CHECK 0; SODIUM 142 MEQ/L (136-147); UREA NITROGEN (BUN) 45 mg/dL (9-23)
[2017-01-31 07:35] VITALS: BP 156/76
[2017-01-31 09:23] LABS: Estimated Average Glucose 260 mg/dL (70-123); HEMOGLOBIN A1c (GLYCOHEMOGLOB) 10.7 % HGB (Below 5.7)
[2017-01-31 11:28] LABS: C DIFF TOXIN NEGATIVE (NEGATIVE)
[2017-01-31 11:29] LABS: PROBE CHECK PASS; SPECIMEN PROCESSING CONTROL PASS
[2017-01-31 12:06] LABS: POINT-OF-CARE METER ID UU14162508; POINT-OF-CARE USER ID STWLMB34
[2017-01-31 12:10] VITALS: BP 124/60
[2017-01-31 16:10] VITALS: BP 132/62
[2017-01-31 16:48] LABS: POINT-OF-CARE METER ID UU14162508; POINT-OF-CARE USER ID STWLMB34
[2017-01-31 19:33] VITALS: BP 155/71
[2017-01-31 21:57] LABS: POINT-OF-CARE METER ID UU14162508
[2017-01-31 23:36] VITALS: BP 139/65
[2017-02-01 03:49] VITALS: BP 133/62
[2017-02-01 06:37] LABS: POINT-OF-CARE METER ID UU14162508
[2017-02-01 07:55] VITALS: BP 143/75
[2017-02-01 08:25] LABS: EOSINOPHIL (%) 6.3 % (0-5); EOSINOPHIL COUNT 0.4 K/uL (0-0.3); IMMATURE GRANULOCYTE (%) 0.6 % (0.0-0.7); MCH 27.5 PG (29.0-34.0); MCV 88.8 FL (83-99); MEAN PLAT.VOLUME 10.4 uM^3 (9.5-12.4); MONOCYTE (%) 11.9 % (3-12); MONOCYTE COUNT 0.7 K/uL (0-0.8); NEUTROPHIL (%) 64.8 % (45-76); PLATELET COUNT 267 K/uL (156-360); RBC DIS.WIDTH-CV 15.3 % (11.8-14.6); RBC DIS.WIDTH-SD 49.2 % (39-53); RED BLOOD COUNT 3.49 M/uL (3.80-5.20); WHITE BLOOD COUNT 6.2 K/uL (4.1-10.2)
[2017-02-01 08:53] LABS: ALKALINE PHOSPHATASE 127 IU/L (3-129); ANION GAP 9 MEQ/L (2-14); CHLORIDE 98 MEQ/L (99-109); GFR ESTIMATE (CALCULATED) 23 mL/min/; GLUCOSE 161 mg/dL (70-99); POTASSIUM 3.4 MEQ/L (3.7-5.4); SAMPLE HEMOLYSIS CHECK 0; SAMPLE ICTERIC CHECK 0; SAMPLE LIPEMIA CHECK 0; UREA NITROGEN (BUN) 37 mg/dL (9-23)
[2017-02-01 08:54] LABS: SODIUM 129 MEQ/L (136-147); TOTAL BILIRUBIN 0.3 MG/DL (0.0-1.0)
[2017-02-01 11:14] LABS: ANION GAP 9 MEQ/L (2-14); CHLORIDE 98 MEQ/L (99-109); GFR ESTIMATE (CALCULATED) 23 mL/min/; GLUCOSE 161 mg/dL (70-99); POTASSIUM 3.4 MEQ/L (3.7-5.4); SAMPLE HEMOLYSIS CHECK 0; SAMPLE ICTERIC CHECK 0; SAMPLE LIPEMIA CHECK 0; UREA NITROGEN (BUN) 37 mg/dL (9-23)
[2017-02-01 11:15] LABS: SODIUM 129 MEQ/L (136-147)
[2017-02-01 12:02] VITALS: BP 129/56
[2017-02-01 19:20] VITALS: BP 133/60
[2017-02-01 23:15] VITALS: BP 138/67
[2017-02-02 03:39] VITALS: BP 142/65
[2017-02-02 06:36] LABS: POINT-OF-CARE METER ID UU14162508
[2017-02-02 07:51] LABS: EOSINOPHIL (%) 6.3 % (0-5); EOSINOPHIL COUNT 0.4 K/uL (0-0.3); HEMATOCRIT 31.1 % (36.0-46.0); IMMATURE GRANULOCYTE (%) 0.5 % (0.0-0.7); MCH 27.8 PG (29.0-34.0); MCHC 31.5 G/DL (30.0-36.0); MCV 88.4 FL (83-99); MEAN PLAT.VOLUME 10.7 uM^3 (9.5-12.4); MONOCYTE (%) 12.1 % (3-12); MONOCYTE COUNT 0.8 K/uL (0-0.8); NEUTROPHIL (%) 64.5 % (45-76); PLATELET COUNT 235 K/uL (156-360); RBC DIS.WIDTH-CV 15.4 % (11.8-14.6); RBC DIS.WIDTH-SD 50.4 % (39-53); RED BLOOD COUNT 3.52 M/uL (3.80-5.20); WHITE BLOOD COUNT 6.2 K/uL (4.1-10.2)
[2017-02-02 08:14] LABS: ALKALINE PHOSPHATASE 136 IU/L (3-129); ANION GAP 11 MEQ/L (2-14); CHLORIDE 105 MEQ/L (99-109); GFR ESTIMATE (CALCULATED) 24 mL/min/; GFR ESTIMATE (CALCULATED) 26 mL/min/; GLUCOSE 161 mg/dL (70-99); GLUCOSE 164 mg/dL (70-99); MAGNESIUM 2.2 mg/dl (1.3-2.7); POTASSIUM 4.3 MEQ/L (3.7-5.4); POTASSIUM 4.6 MEQ/L (3.7-5.4); SAMPLE HEMOLYSIS CHECK 0; SAMPLE ICTERIC CHECK 0; SAMPLE LIPEMIA CHECK 0; SODIUM 137 MEQ/L (136-147); SODIUM 138 MEQ/L (136-147); TOTAL BILIRUBIN 0.3 MG/DL (0.0-1.0); UREA NITROGEN (BUN) 38 mg/dL (9-23)
[2017-02-02 08:52] VITALS: BP 177/80
[2017-02-02 11:15] VITALS: BP 132/67
[2017-02-02 15:05] VITALS: BP 155/72
[2017-02-02 20:32] VITALS: BP 126/61
[2017-02-03 00:44] VITALS: BP 112/56
[2017-02-03 04:44] VITALS: BP 129/66
[2017-02-03 06:24] LABS: POINT-OF-CARE METER ID UU14162508
[2017-02-03 07:12] LABS: ANION GAP 11 MEQ/L (2-14); CHLORIDE 105 MEQ/L (99-109); GFR ESTIMATE (CALCULATED) 26 mL/min/; MAGNESIUM 1.9 mg/dl (1.3-2.7); POTASSIUM 4.1 MEQ/L (3.7-5.4); SAMPLE HEMOLYSIS CHECK 0; SAMPLE ICTERIC CHECK 0; SAMPLE LIPEMIA CHECK 0; SODIUM 138 MEQ/L (136-147); UREA NITROGEN (BUN) 34 mg/dL (9-23)
[2017-02-03 07:13] LABS: GLUCOSE 102 mg/dL (70-99)
[2017-02-03 07:35] VITALS: BP 131/63
[2017-02-03] MEDS ORDERED: MYCOSTATIN 100,60 ML PO (10:53)
[2017-02-03] MEDS ORDERED: SPIRIVA RESPIMAT4 GM IH (10:54)
[2017-02-03] MEDS ORDERED: LEVEMIR100 UNIT/2 SC (10:55)
[2017-02-03] MEDS ORDERED: ADVAIR HFA120 INHALA IH (10:55)
[2017-02-03] MEDS ORDERED: Procardia XL,Adalat PO (10:57)
[2017-02-03] MEDS ORDERED: PROTONIX40 MG PO (10:57)
[2017-02-03 12:19] VITALS: BP 124/58
== END 2017-02-03 15:30 | disposition home health service (06) | DRG 853 ==
LOC: EME 12:53 → 2EASTP 15:08 → EDOF 15:08 → 4EAST 15:08 → 2EASTP 15:08 → 4WEST 15:08 → 4EAST 20:16 → 4WEST 01-17 12:52 → 4EAST 01-26 14:28 → 2EASTP 01-30 23:55
PROVIDERS: Anesthesiology; Emergency Medicine; Hospitalist; Internal Medicine; Internal Medicine Critical Care Medicine; Internal Medicine Nephrology; Obstetrics & Gynecology; Physician Assistant; Specialist; Student in an Organized Health Care Education/Training Program; Surgery
PROC: BT1FZZZ Fluoroscopy of Left Kidney, Ureter and Bladder (ICD-10-PCS; principal; 2017-01-15)
PROC: 0T778DZ Dilation of Left Ureter with Intraluminal Device, Via Natural or Artificial Opening Endoscopic (ICD-10-PCS; principal; 2017-01-15)
PROC: 5A1955Z Respiratory Ventilation, Greater than 96 Consecutive Hours (ICD-10-PCS; 2017-01-17)
PROC: 0BH17EZ Insertion of Endotracheal Airway into Trachea, Via Natural or Artificial Opening (ICD-10-PCS; 2017-01-17)
PROC: 03HY32Z Insertion of Monitoring Device into Upper Artery, Percutaneous Approach (ICD-10-PCS; 2017-01-17)
PROC: 0DU607Z Supplement Stomach with Autologous Tissue Substitute, Open Approach (ICD-10-PCS; 2017-01-18)
PROC: 0DBH0ZZ Excision of Cecum, Open Approach (ICD-10-PCS; 2017-01-18)
PROC: 0DQ60ZZ Repair Stomach, Open Approach (ICD-10-PCS; 2017-01-18)
PROC: 0DTJ0ZZ Resection of Appendix, Open Approach (ICD-10-PCS; 2017-01-18)
PROC: 0WQF0ZZ Repair Abdominal Wall, Open Approach (ICD-10-PCS; 2017-01-18)
PROC: 30233N1 Transfusion of Nonautologous Red Blood Cells into Peripheral Vein, Percutaneous Approach (ICD-10-PCS; 2017-01-22)
PROC: 5A1D60Z (ICD-10-PCS; 2017-01-22)
DX: A41.9 Sepsis, unspecified organism (principal); R65.21 Severe sepsis with septic shock; J96.21 Acute and chronic respiratory failure with hypoxia; E11.00 Type 2 diabetes mellitus with hyperosmolarity without nonketotic hyperglycemic-hyperosmolar coma (NKHHC); E43 Unspecified severe protein-calorie malnutrition; E87.2 Acidosis; I95.9 Hypotension, unspecified; N13.6 Pyonephrosis; J18.9 Pneumonia, unspecified organism; Y95 Nosocomial condition; K65.9 Peritonitis, unspecified; K25.1 Acute gastric ulcer with perforation; K91.3 Postprocedural intestinal obstruction; J96.22 Acute and chronic respiratory failure with hypercapnia; E11.65 Type 2 diabetes mellitus with hyperglycemia; E11.22 Type 2 diabetes mellitus with diabetic chronic kidney disease; I12.9 Hypertensive chronic kidney disease with stage 1 through stage 4 chronic kidney disease, or unspecified chronic kidney disease; J84.10 Pulmonary fibrosis, unspecified; K43.0 Incisional hernia with obstruction, without gangrene; Z99.81 Dependence on supplemental oxygen; E78.5 Hyperlipidemia, unspecified; Z79.4 Long term (current) use of insulin; E87.1 Hypo-osmolality and hyponatremia; N18.3 Chronic kidney disease, stage 3 (moderate); D63.1 Anemia in chronic kidney disease; Z87.891 Personal history of nicotine dependence; J44.9 Chronic obstructive pulmonary disease, unspecified; E86.0 Dehydration; R31.9 Hematuria, unspecified; E83.39 Other disorders of phosphorus metabolism
CPT/HCPCS: 36600; 71010; 71020; 74000; 74176; 76770; 80048; 80048 91; 80053; 80069; 80076; 80202; 81003; 81050; 82248; 82330; 82436; 82533 91; 82803; 82948; 83036; 83605; 83735; 83930; 83935; 84100; 84134; 84295; 84300; 84443; 84478; 84540; 84630 90; 85014; 85018; 85025; 85025 91; 85027; 85610; 85730; 86850; 86900; 86901; 86920; 87040; 87070; 87075; 87086; 87205; 87493; 87641; 88302; 92526 GN; 92610 GN; 93005; 93306; 94002; 94003; 94010; 94640; 94640 76; 94667; 94668; 94760; 94799; 97530 GO; 97530 GP; 99202; 99281; 99285; C1752; C1876; C9113; J0360; J1170; J1335; J1450; J1644; J1815; J1940; J2250; J2405; J2543; J2704; J2997; J3010; J3370; J3475; J3480; J7030; J7040; J7050; J7070; J7120; P9016; S0028

== ENCOUNTER 2017-07-16 08:40 | Inpatient (IN) | payer OTHER ==
[~2017-07-16] VITALS: Ht 160 cm; Wt 69.8 kg
[~2017-07-16 08:40] MED LIST: ACCUPRIL40 MG PO; ADVAIR HFA120 INHALA IH; GLIPIZIDE10 MG PO; GLIPIZIDE5 MG PO; GLUCOTROL10 MG PO; HYDROCHLOROTH12.5 M3 PO; LEVEMIR100 UNIT/2 SC; LIPITOR40 MG PO; MYCOSTATIN 100,60 ML PO; NIFEDICAL XL PO; PROCARDIA XL30 MG PO; PROTONIX40 MG PO; Procardia XL,Adalat PO; QUINAPRIL HCL20 MG PO; QUINAPRIL HCL40 MG PO; SPIRIVA RESPIMAT4 GM IH; VITAMIN D31000 UNIT PO
[2017-07-16 09:28] LABS: HEMATOCRIT 36.6 % (36.0-46.0); MCV 84.3 FL (83-99); MEAN PLAT.VOLUME 9.8 uM^3 (9.5-12.4); PLATELET COUNT 286 K/uL (156-360); RBC DIS.WIDTH-CV 13.9 % (11.8-14.6); RED BLOOD COUNT 4.34 M/uL (3.80-5.20); WHITE BLOOD COUNT 14.6 K/uL (4.1-10.2)
[2017-07-16 09:32] LABS: ADD MIUA? YES; BILIRUBIN NEGATIVE; BLOOD NEGATIVE; COLOR YELLOW ((YELLOW)); GLUCOSE (STRIP) NEGATIVE; KETONES NEGATIVE; LEUKOCYTES LARGE; NITRITE POSITIVE; PROTEIN (STRIP) 30; SPECIFIC GRAVITY 1.016 (1.000-1.030); UROBILINOGEN 0.2 MG/DL (0.2-1.0)
[2017-07-16 09:39] LABS: BACTERIA 1+ /HPF; EPITHELIAL CELLS 1+ /HPF; MUCUS NONE SEEN /LPF; RED BLOOD CELLS 15-20 /HPF (0-5); WHITE BLOOD CELLS TNTC /HPF (0-5); WHITE BLOOD CELLS CLUMP FEW /HPF (0-5)
[2017-07-16 09:39] LABS: CHLORIDE 97 mEq/L (99-109); POTASSIUM 3.4 mEq/L (3.7-5.4); SODIUM 133 mEq/L (136-147)
[2017-07-16 09:40] LABS: GLUCOSE 132 mg/dL (70-99)
[2017-07-16 09:42] LABS: ANION GAP 12 MEQ/L (2-14)
[2017-07-16 09:45] LABS: GFR ESTIMATE (CALCULATED) 27 mL/min/; UREA NITROGEN (BUN) 31 mg/dL (9-23)
[2017-07-16 09:58] LABS: LIPASE 10 U/L (1.0-51.0)
[2017-07-16] MEDS ORDERED: PROCARDIA XL30 MG PO (12:25)
[2017-07-16 13:14] VITALS: BP 134/62
[2017-07-16 17:03] LABS: POINT-OF-CARE METER ID UU13113725
[2017-07-16 21:47] LABS: POINT-OF-CARE METER ID UU13113725
[2017-07-16 23:43] VITALS: BP 105/52
[2017-07-17 06:34] LABS: POINT-OF-CARE METER ID UU13113725
[2017-07-17 06:53] LABS: EOSINOPHIL (%) 0.7 % (0-5); EOSINOPHIL COUNT 0.1 K/uL (0-0.3); IMMATURE GRANULOCYTE (%) 1.4 % (0.0-0.7); IMMATURE GRANULOCYTE COUNT 0.2 K/uL; INSTRUMENT ABS NEUTROPHIL CT 9.8 K/uL; LYMPHOCYTE COUNT 1.6 K/uL (1.0-2.8); MCH 27.6 PG (29.0-34.0); MCHC 32.7 G/DL (30.0-36.0); MCV 84.4 FL (83-99); MONOCYTE (%) 11.5 % (3-12); MONOCYTE COUNT 1.5 K/uL (0-0.8); NEUTROPHIL (%) 74.1 % (45-76); NEUTROPHIL COUNT 9.8 K/uL (1.8-6.4); PLATELET COUNT 257 K/uL (156-360); RBC DIS.WIDTH-CV 14.3 % (11.8-14.6); RBC DIS.WIDTH-SD 44.5 % (39-53); RED BLOOD COUNT 3.91 M/uL (3.80-5.20); WHITE BLOOD COUNT 13.2 K/uL (4.1-10.2)
[2017-07-17 07:45] LABS: ANION GAP 7 MEQ/L (2-14); CHLORIDE 102 MEQ/L (99-109); GFR ESTIMATE (CALCULATED) 31 mL/min/; POTASSIUM 3.9 MEQ/L (3.7-5.4); SAMPLE HEMOLYSIS CHECK 0; SAMPLE ICTERIC CHECK 0; SAMPLE LIPEMIA CHECK 0; SODIUM 136 MEQ/L (136-147); UREA NITROGEN (BUN) 30 mg/dL (9-23)
[2017-07-17 07:46] LABS: GLUCOSE 98 mg/dL (70-99)
[2017-07-17 07:58] VITALS: BP 111/56
[2017-07-17 11:31] LABS: POINT-OF-CARE METER ID UU13113725
[2017-07-17 16:00] VITALS: BP 125/59
[2017-07-17 16:37] LABS: POINT-OF-CARE METER ID UU13113725
[2017-07-17 20:51] LABS: POINT-OF-CARE METER ID UU13113725
[2017-07-17 22:53] VITALS: BP 128/61
[2017-07-18 06:00] LABS: POINT-OF-CARE METER ID UU13113725; POINT-OF-CARE USER ID 608261329
[2017-07-18 06:16] LABS: MCH 27.8 PG (29.0-34.0); MCHC 32.5 G/DL (30.0-36.0); MCV 85.6 FL (83-99); MEAN PLAT.VOLUME 9.8 uM^3 (9.5-12.4); PLATELET COUNT 265 K/uL (156-360); RBC DIS.WIDTH-CV 14.1 % (11.8-14.6); RED BLOOD COUNT 3.74 M/uL (3.80-5.20); WHITE BLOOD COUNT 11.7 K/uL (4.1-10.2)
[2017-07-18 06:36] LABS: ANION GAP 10 MEQ/L (2-14); CHLORIDE 103 MEQ/L (99-109); GFR ESTIMATE (CALCULATED) 35 mL/min/; GLUCOSE 85 mg/dL (70-99); POTASSIUM 3.9 MEQ/L (3.7-5.4); SAMPLE HEMOLYSIS CHECK 0; SAMPLE ICTERIC CHECK 0; SAMPLE LIPEMIA CHECK 0; SODIUM 138 MEQ/L (136-147); UREA NITROGEN (BUN) 25 mg/dL (9-23)
[2017-07-18 07:47] VITALS: BP 119/56
[2017-07-18 11:40] LABS: POINT-OF-CARE METER ID UU13113725
[2017-07-18 15:00] VITALS: BP 132/63
[2017-07-18 16:34] LABS: POINT-OF-CARE METER ID UU13113725
[2017-07-18 20:46] LABS: POINT-OF-CARE METER ID UU13113725
[2017-07-19 00:30] VITALS: BP 132/62
[2017-07-19 07:11] VITALS: BP 135/65
[2017-07-19 07:43] LABS: POINT-OF-CARE METER ID UU13113725
[2017-07-19 09:36] LABS: HEMATOCRIT 29.2 % (36.0-46.0); MCH 27.8 PG (29.0-34.0); MCHC 32.5 G/DL (30.0-36.0); MCV 85.4 FL (83-99); MEAN PLAT.VOLUME 9.5 uM^3 (9.5-12.4); PLATELET COUNT 217 K/uL (156-360); RBC DIS.WIDTH-CV 14.2 % (11.8-14.6); RBC DIS.WIDTH-SD 44.8 % (39-53); RED BLOOD COUNT 3.42 M/uL (3.80-5.20); WHITE BLOOD COUNT 10.6 K/uL (4.1-10.2)
[2017-07-19 10:01] LABS: ANION GAP 9 MEQ/L (2-14); CHLORIDE 105 MEQ/L (99-109); GFR ESTIMATE (CALCULATED) 41 mL/min/; GLUCOSE 106 mg/dL (70-99); POTASSIUM 3.7 MEQ/L (3.7-5.4); SAMPLE HEMOLYSIS CHECK 0; SAMPLE ICTERIC CHECK 0; SAMPLE LIPEMIA CHECK 0; SODIUM 138 MEQ/L (136-147); UREA NITROGEN (BUN) 19 mg/dL (9-23)
[2017-07-19 10:31] VITALS: BP 118/57
[2017-07-19 12:33] LABS: POINT-OF-CARE METER ID UU13113675
[2017-07-19 12:47] VITALS: BP 148/66
[2017-07-19 16:06] VITALS: BP 153/67
[2017-07-19 16:16] LABS: POINT-OF-CARE METER ID UU13113774
[2017-07-19 21:39] LABS: POINT-OF-CARE METER ID UU13113774
[2017-07-19 23:45] VITALS: BP 107/53
[2017-07-20 03:55] VITALS: BP 102/57
[2017-07-20 06:05] LABS: HEMATOCRIT 30.7 % (36.0-46.0); MCH 27.2 PG (29.0-34.0); MCHC 31.3 G/DL (30.0-36.0); MEAN PLAT.VOLUME 9.7 uM^3 (9.5-12.4); PLATELET COUNT 241 K/uL (156-360); RBC DIS.WIDTH-CV 14.3 % (11.8-14.6); RBC DIS.WIDTH-SD 46.1 % (39-53); RED BLOOD COUNT 3.53 M/uL (3.80-5.20); WHITE BLOOD COUNT 7.5 K/uL (4.1-10.2)
[2017-07-20 06:37] LABS: ANION GAP 10 MEQ/L (2-14); CHLORIDE 107 MEQ/L (99-109); GFR ESTIMATE (CALCULATED) 41 mL/min/; GLUCOSE 95 mg/dL (70-99); POTASSIUM 3.9 MEQ/L (3.7-5.4); SAMPLE HEMOLYSIS CHECK 0; SAMPLE ICTERIC CHECK 0; SAMPLE LIPEMIA CHECK 0; SODIUM 141 MEQ/L (136-147); UREA NITROGEN (BUN) 18 mg/dL (9-23)
[2017-07-20 06:38] LABS: POINT-OF-CARE METER ID UU13113774
[2017-07-20 08:54] VITALS: BP 168/76
[2017-07-20 11:53] LABS: POINT-OF-CARE METER ID UU13113774
[2017-07-20 16:23] LABS: POINT-OF-CARE METER ID UU13113774
[2017-07-20 16:25] VITALS: BP 140/63
[2017-07-20 22:05] LABS: POINT-OF-CARE METER ID UU13113725
[2017-07-21 00:35] VITALS: BP 132/63
[2017-07-21 05:46] LABS: POINT-OF-CARE METER ID UU13113774
[2017-07-21 06:35] LABS: HEMATOCRIT 30.4 % (36.0-46.0); MCHC 31.3 G/DL (30.0-36.0); MCV 86.4 FL (83-99); MEAN PLAT.VOLUME 9.3 uM^3 (9.5-12.4); PLATELET COUNT 248 K/uL (156-360); RBC DIS.WIDTH-CV 14.5 % (11.8-14.6); RBC DIS.WIDTH-SD 46.1 % (39-53); RED BLOOD COUNT 3.52 M/uL (3.80-5.20); WHITE BLOOD COUNT 7.8 K/uL (4.1-10.2)
[2017-07-21 06:45] VITALS: BP 177/81
[2017-07-21 06:57] LABS: ANION GAP 9 MEQ/L (2-14); CHLORIDE 106 MEQ/L (99-109); GFR ESTIMATE (CALCULATED) 38 mL/min/; GLUCOSE 86 mg/dL (70-99); POTASSIUM 3.7 MEQ/L (3.7-5.4); SAMPLE HEMOLYSIS CHECK 0; SAMPLE ICTERIC CHECK 0; SAMPLE LIPEMIA CHECK 0; SODIUM 140 MEQ/L (136-147); UREA NITROGEN (BUN) 17 mg/dL (9-23)
[2017-07-21 11:38] LABS: POINT-OF-CARE METER ID UU13113725
[2017-07-21 15:00] VITALS: BP 136/62
[2017-07-21 16:50] LABS: POINT-OF-CARE METER ID UU13113774
[2017-07-21 20:22] LABS: POINT-OF-CARE METER ID UU13113725
[2017-07-21 20:34] VITALS: BP 158/73
[2017-07-22 00:17] VITALS: BP 138/65
[2017-07-22 06:15] LABS: POINT-OF-CARE METER ID UU13113774
[2017-07-22 06:44] LABS: BASOPHIL COUNT 0.1 K/uL (0-0.1); EOSINOPHIL (%) 3.5 % (0-5); EOSINOPHIL COUNT 0.3 K/uL (0-0.3); HEMATOCRIT 31.4 % (36.0-46.0); IMMATURE GRANULOCYTE (%) 3.8 % (0.0-0.7); IMMATURE GRANULOCYTE COUNT 0.3 K/uL; INSTRUMENT ABS NEUTROPHIL CT 5.6 K/uL; LYMPHOCYTE COUNT 1.3 K/uL (1.0-2.8); MCH 26.3 PG (29.0-34.0); MCHC 30.9 G/DL (30.0-36.0); MCV 85.1 FL (83-99); MEAN PLAT.VOLUME 9.3 uM^3 (9.5-12.4); MONOCYTE (%) 8.7 % (3-12); MONOCYTE COUNT 0.7 K/uL (0-0.8); NEUTROPHIL (%) 67.7 % (45-76); NEUTROPHIL COUNT 5.6 K/uL (1.8-6.4); PLATELET COUNT 274 K/uL (156-360); RBC DIS.WIDTH-CV 14.1 % (11.8-14.6); RBC DIS.WIDTH-SD 44.4 % (39-53); RED BLOOD COUNT 3.69 M/uL (3.80-5.20); WHITE BLOOD COUNT 8.3 K/uL (4.1-10.2)
[2017-07-22 07:06] LABS: ANION GAP 11 MEQ/L (2-14); CHLORIDE 108 MEQ/L (99-109); GFR ESTIMATE (CALCULATED) 45 mL/min/; GLUCOSE 84 mg/dL (70-99); POTASSIUM 3.4 MEQ/L (3.7-5.4); SAMPLE HEMOLYSIS CHECK 0; SAMPLE ICTERIC CHECK 0; SAMPLE LIPEMIA CHECK 0; SODIUM 143 MEQ/L (136-147); UREA NITROGEN (BUN) 15 mg/dL (9-23)
[2017-07-22 07:32] VITALS: BP 170/81
[2017-07-22] MEDS ORDERED: ATORVASTATIN CA40 MG PO (10:28)
[2017-07-22] MEDS ORDERED: CIPRO500 MG PO (10:28)
[2017-07-22 11:27] LABS: POINT-OF-CARE METER ID UU13113725
== END 2017-07-22 13:28 | disposition home or self-care (01) | DRG 698 ==
LOC: EME 08:40 → 5EAST 11:36 → EDOF 11:36 → ENRESERV 11:51 → 5EAST 13:04 → ENPENDDIS 07-22 → 5EAST 07-22 13:28
PROVIDERS: Internal Medicine; Physician Assistant
DX: T83.592A Infection and inflammatory reaction due to indwelling ureteral stent, initial encounter (principal); T83.112A Breakdown (mechanical) of indwelling ureteral stent, initial encounter; Y83.1 Surgical operation with implant of artificial internal device as the cause of abnormal reaction of the patient, or of later complication, without mention of misadventure at the time of the procedure; A41.9 Sepsis, unspecified organism; N13.6 Pyonephrosis; B95.61 Methicillin susceptible Staphylococcus aureus infection as the cause of diseases classified elsewhere; J84.10 Pulmonary fibrosis, unspecified; J96.11 Chronic respiratory failure with hypoxia; Z99.81 Dependence on supplemental oxygen; E87.6 Hypokalemia; N17.9 Acute kidney failure, unspecified; E11.65 Type 2 diabetes mellitus with hyperglycemia; I12.9 Hypertensive chronic kidney disease with stage 1 through stage 4 chronic kidney disease, or unspecified chronic kidney disease; N18.4 Chronic kidney disease, stage 4 (severe); Z87.442 Personal history of urinary calculi; Z87.440 Personal history of urinary (tract) infections
CPT/HCPCS: 74176; 74420; 80048; 80202; 81003; 82948; 83605; 83690; 85025; 85027; 87040; 87070; 87075; 87076; 87086; 87185; 87205; 90686; 93306; 94640; 94640 76; 94799; 99281; 99285; C1753; C2625; J0696; J1100; J1644; J1815; J2250; J2405; J3010; J3370; J7030; J7050; S0032

== ENCOUNTER → 2017-08-06 | Outpatient (CLI) | payer OTHER ==
[~2017-08-06] MED LIST changes: +ATORVASTATIN CA40 MG PO; +CIPRO500 MG PO
== END | disposition home or self-care (01) ==
LOC: NUC 10:54
DX: N13.30 Unspecified hydronephrosis (principal); R94.4 Abnormal results of kidney function studies; Z87.448 Personal history of other diseases of urinary system; Z96.0 Presence of urogenital implants
CPT/HCPCS: 78709; A9562

== ENCOUNTER → 2017-08-31 | Outpatient (CLI) | payer MEDICARE ==
[~2017-08-31] MED LIST changes: +LEVEMIR FL100 UNIT/1 SC; +NIFEDIPINE ER60 MG PO
== END | disposition home or self-care (01) ==
LOC: CDC 11:38
DX: Z01.810 Encounter for preprocedural cardiovascular examination (principal); R94.31 Abnormal electrocardiogram [ECG] [EKG]
CPT/HCPCS: 93000

== ENCOUNTER 2017-09-06 06:31 | Day surgery (SDC) | payer OTHER ==
[~2017-09-06] VITALS: Ht 160 cm; Wt 68.9 kg
[2017-09-06 07:16] VITALS: BP 104/54
[2017-09-06 07:53] LABS: POINT-OF-CARE METER ID UU14174212
[2017-09-06 10:22] LABS: POINT-OF-CARE METER ID UU13113675
[2017-09-06 11:29] VITALS: BP 142/63
[2017-09-06 12:24] VITALS: BP 117/57
[2017-09-06 13:13] VITALS: BP 110/55
== END 2017-09-06 13:20 | disposition home or self-care (01) ==
LOC: SDC
PROVIDERS: Urology
DX: N20.2 Calculus of kidney with calculus of ureter (principal); N11.1 Chronic obstructive pyelonephritis; I10 Essential (primary) hypertension; J45.909 Unspecified asthma, uncomplicated; E11.9 Type 2 diabetes mellitus without complications; J84.10 Pulmonary fibrosis, unspecified; Z87.891 Personal history of nicotine dependence; Z79.4 Long term (current) use of insulin
CPT/HCPCS: 82948; C1769; C1876; C2625; J0330; J1580; J2250; J2405; J3010; J7050

== ENCOUNTER 2017-11-09 02:47 | Emergency (ER) | payer OTHER ==
[~2017-11-09] VITALS: Ht 160 cm; Wt 72.7 kg
[2017-11-09 03:41] LABS: HEMATOCRIT 41.1 % (36.0-46.0); HEMOGLOBIN 13.7 G/DL (11.9-15.5); MCHC 33.3 G/DL (30.0-36.0); MCV 80.9 FL (83-99); RBC DIS.WIDTH-CV 13.7 % (11.8-14.6); RBC DIS.WIDTH-SD 40.4 % (39-53); RED BLOOD COUNT 5.08 M/uL (3.80-5.20); WHITE BLOOD COUNT 12.5 K/uL (4.1-10.2)
[2017-11-09 03:47] LABS: ALBUMIN 3.4 g/dL (3.2-4.8); CHLORIDE 97 mEq/L (99-109); POTASSIUM 2.9 mEq/L (3.7-5.4); SODIUM 131 mEq/L (136-147)
[2017-11-09 03:49] LABS: GLUCOSE 178 mg/dL (70-99); TOTAL PROTEIN 7.2 g/dL (6.4-8.3)
[2017-11-09 03:51] LABS: TOTAL BILIRUBIN 2.3 mg/dL (0.0-1.0)
[2017-11-09 03:53] LABS: ALKALINE PHOSPHATASE 453 IU/L (3-129); CREATININE 3.2 mg/dL (0.6-1.3); GFR ESTIMATE (CALCULATED) 16 mL/min/
[2017-11-09 03:54] LABS: AST (GOT) 31 IU/L (2-34); UREA NITROGEN (BUN) 42 mg/dL (9-23)
[2017-11-09 03:56] LABS: ALT (GPT) 12 IU/L (3-49)
[2017-11-09 04:00] LABS: TROP-I INTERPRETATION NEGATIVE; TROPONIN-I < 0.01 ng/mL (0.0-0.30)
[2017-11-09 04:18] LABS: ABS NEUTROPHIL COUNT 11.8; EOSINOPHIL ABS CT 0.3; PLAT.SUFFICIENCY DECREASED; PLATELET COUNT 105 K/uL (156-360)
[2017-11-09 10:22] VITALS: BP 00/00
== END 2017-11-09 05:07 ==
LOC: EME 02:47
PROVIDERS: Emergency Medicine
PROC: 5A12012 Performance of Cardiac Output, Single, Manual (ICD-10-PCS; principal; 2017-11-09)
PROC: 0BH17EZ Insertion of Endotracheal Airway into Trachea, Via Natural or Artificial Opening (ICD-10-PCS; 2017-11-09)
DX: I46.9 Cardiac arrest, cause unspecified (principal); R00.0 Tachycardia, unspecified; I45.10 Unspecified right bundle-branch block; R94.31 Abnormal electrocardiogram [ECG] [EKG]; J84.10 Pulmonary fibrosis, unspecified; E11.9 Type 2 diabetes mellitus without complications; Z87.891 Personal history of nicotine dependence; Z79.4 Long term (current) use of insulin; Z99.81 Dependence on supplemental oxygen
CPT/HCPCS: 71045; 80053; 81003; 83605; 83880; 84484; 85025; 87040; 87077; 87186; 87801; 92950; 93005; 94002; J0171; J0461